=== PATIENT | male | born 1980 | race African-American/Black ===

== ENCOUNTER 2017-10-11 08:30 | Emergency (ER) | payer OTHER ==
[2017-10-11 08:34] VITALS: BP 134/69; BMI 31.6
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
== END 2017-10-11 11:04 | disposition home or self-care (01) ==
LOC: ER 08:45
DX: M51.36 Other intervertebral disc degeneration, lumbar region (principal); M62.838 Other muscle spasm; V87.7XXA Person injured in collision between other specified motor vehicles (traffic), initial encounter; Y92.89 Other specified places as the place of occurrence of the external cause
CPT/HCPCS: 72072; 99282

== ENCOUNTER 2017-10-14 11:09 | Emergency (ER) | payer OTHER ==
[2017-10-14 11:13] VITALS: BP 125/62; BMI 30.3
[2017-10-14] MEDS ORDERED: TORADOL 60 MG VIAL IM ONE (12:14)
[2017-10-14] MEDS ORDERED: NORFLEX INJ IM ONE (12:14)
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
[2017-10-14] MEDS ORDERED: TORADOL 30 MG VIAL ONE (12:17)
[2017-10-14] MEDS ORDERED: NORFLEX INJ ONE (12:17)
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
== END 2017-10-14 12:58 | disposition home or self-care (01) ==
LOC: ER 11:25
DX: S16.1XXD Strain of muscle, fascia and tendon at neck level, subsequent encounter (principal); S29.019D Strain of muscle and tendon of unspecified wall of thorax, subsequent encounter; V87.7XXD Person injured in collision between other specified motor vehicles (traffic), subsequent encounter
CPT/HCPCS: 72050; 96372; 99282; J1885; J2360